=== PATIENT | male | born 1960 | race Caucasian/White ===

== ENCOUNTER 2018-06-13 10:01 | Inpatient (IN) | payer BC ==
[~2018-06-13] VITALS: Ht 185.4 cm; Wt 97.7 kg
[~2018-06-13 10:01] MED LIST: CAR2T PO; CARV25TA PO; GABA-338 PO; LOSA1TAB39 PO; METF500T7 PO; MULT-1085 PO; NOR5T PO; SITA50TA7 PO
[2018-06-13 11:19] LABS: BASOPHILS # (AUTO) 0.1 X10'3 (0-0.2); BASOPHILS % (AUTO) 0.9 % (0-1); EOSINOPHILS # (AUTO) 0.3 X10'3 (0-0.9); EOSINOPHILS % (AUTO) 2.8 % (0-6); HEMATOCRIT 42.5 % (42.0-52.0); HEMOGLOBIN 14.3 g/dl (14.0-17.9); LYMPHOCYTES # (AUTO) 1.9 X10'3 (1.1-4.8); LYMPHOCYTES % (AUTO) 19.3 % (21-51); MEAN CORPUSCULAR HEMOGLOBIN 28.4 PG (27.0-31.0); MEAN CORPUSCULAR HGB CONC 33.6 % (33.0-36.5); MEAN CORPUSCULAR VOLUME 84.5 FL (78-98); MEAN PLATELET VOLUME 8.4 FL (7.4-10.4); MONOCYTES # (AUTO) 0.5 X10'3 (0-0.9); MONOCYTES % (AUTO) 5.3 % (2-12); NEUTROPHILS # (AUTO) 6.8 X10'3 (1.8-7.7); NEUTROPHILS % (AUTO) 71.7 % (42-75); PLATELET COUNT 395 X10'3 (140-440); RED BLOOD COUNT 5.02 X10'6 (4.70-6.10); RED CELL DISTRIBUTION WIDTH 14.2 % (11.5-14.5); WHITE BLOOD COUNT 9.6 X10'3 (4.5-11.0)
[2018-06-13 11:32] LABS: ALANINE AMINOTRANSFERASE 26 U/L (12-78); ALBUMIN 3.5 G/DL (3.4-5.0); ALBUMIN/GLOBULIN RATIO 0.9 (1.1-1.5); ALKALINE PHOSPHATASE 257 IU/L (46-116); ANION GAP 10 (8-16); ASPARTATE AMINO TRANSFERASE 18 U/L (10-37); BILIRUBIN,TOTAL 0.5 MG/DL (0.1-1.0); BLOOD UREA NITROGEN 22 MG/DL (7-18); BUN/CREATININE RATIO 21.2 (5.4-32.0); CHLORIDE 99 MMOL/L (99-107); CREATININE 1.04 MG/DL (0.60-1.10); GLUCOSE 407 MG/DL (70-104); POTASSIUM 4.1 MMOL/L (3.5-5.1); SODIUM 135 MMOL/L (135-145); TOTAL CARBON DIOXIDE 26.3 MMOL/L (24-32); TOTAL PROTEIN 7.3 G/DL (6.4-8.2); eGFR 73 ML/MIN
[2018-06-13] MEDS ORDERED: normal saline 1000ML IV soln IVB ONE (11:35)
[2018-06-13] MEDS ORDERED: piperacillin/tazo 3.375gm/50ml 50 ML IV STA (11:39)
[2018-06-13] MEDS ORDERED: CLIN150C2 PO (11:47)
[2018-06-13] MEDS ORDERED: INSU100V9 SQ (11:49)
[2018-06-13] MEDS ORDERED: vancomycin/NS 1 GM ADD-VANTAGE 250 ML X 1 DOSE IV ONE (11:50)
[2018-06-13] MEDS ORDERED: LIRA0.6P SQ (11:52)
[2018-06-13] MEDS ORDERED: normal saline 1000ml 1,000 ML IV SCH (12:07)
[2018-06-13] MEDS ORDERED: acetaminophen 325mg tablet PO PRN (12:10)
[2018-06-13] MEDS ORDERED: magnesium hydroxide 30ml (MOM) UD suspension PO PRN (12:10)
[2018-06-13] MEDS ORDERED: mag hydrox/Alum hydrox/simeth 30ml oral suspension PO PRN (12:10)
[2018-06-13] MEDS ORDERED: potassium Cl 20 mEq SR tablet PO PRN ×2 (12:10)
[2018-06-13] MEDS ORDERED: ondansetron/PF 4mg/2ml inj IV PRN (12:10)
[2018-06-13] MEDS ORDERED: magnesium Cl slow-release 64mg tablet PO PRN (12:10)
[2018-06-13] MEDS ORDERED: potassium Cl 40MEQ/NS 500ml 500 ML IV PRN ×2 (12:10)
[2018-06-13] MEDS ORDERED: magnesium 1gm/100ml D5W IVPB 100 ML IV PRN (12:10)
[2018-06-13] MEDS ORDERED: magnesium 4gm in 100ml NS 100 ML IV PRN (12:10)
[2018-06-13] MEDS ORDERED: HYDROcodone/acetaminophen 10/325mg tab PO PRN (12:10)
[2018-06-13] MEDS ORDERED: MESSAGE TO PHARMACY PO ONE (12:25)
[2018-06-13] MEDS ORDERED: dextrose ORAL solution 15 GM/59 ML bottle PO PRN ×2 (12:25)
[2018-06-13] MEDS ORDERED: dextrose 50%-water 50ml dispensing syringe IV PRN ×2 (12:25)
[2018-06-13] MEDS ORDERED: glucagon, human recombinant 1mg kit SUBCUT PRN (12:25)
[2018-06-13 12:29] LABS: HEMOGLOBIN A1C 10.6 % (4.5-6.2)
[2018-06-13] MEDS: gabapentin 300mg capsule PO SCH ×2 (13:10→21:11)
[2018-06-13 14:10] VITALS: BP 175/96
[2018-06-13] MEDS: acetaminophen 325mg tablet PO PRN (17:04)
[2018-06-13 18:00] VITALS: BP 171/93
[2018-06-13] MEDS: insulin Lispro (HumaLOG) vial - multi-dose SQ SCH (19:07)
[2018-06-13] MEDS: piperacillin-tazo 2.25gm/50ml 50 ML IV SCH (19:12)
[2018-06-13] MEDS: vancomycin inj 1,250 MG in normal saline 250ml IV soln 250 ML IV SCH (19:14)
[2018-06-13] MEDS: enoxaparin 30mg/0.3ml syringe SQ SCH (19:15)
[2018-06-13] MEDS: docusate sod 100mg capsule PO SCH (19:17)
[2018-06-13] MEDS ORDERED: temazepam 15mg capsule PO PRN (21:00)
[2018-06-13] MEDS: insulin glargine (Lantus) pen - multi-dose SQ SCH (21:15)
[2018-06-13 22:00] VITALS: BP 173/74
[2018-06-14] MEDS: HYDROcodone/acetaminophen 5mg/325mg tablet PO PRN ×3 (01:15→21:42)
[2018-06-14] MEDS: vancomycin inj 1,250 MG in normal saline 250ml IV soln 250 ML IV SCH (03:56)
[2018-06-14] MEDS: piperacillin-tazo 2.25gm/50ml 50 ML IV SCH ×3 (03:56→19:09)
[2018-06-14 06:00] VITALS: BP 164/87
[2018-06-14 06:29] LABS: BASOPHILS # (AUTO) 0.1 X10'3 (0-0.2); BASOPHILS % (AUTO) 0.8 % (0-1); EOSINOPHILS # (AUTO) 0.4 X10'3 (0-0.9); EOSINOPHILS % (AUTO) 4.1 % (0-6); HEMATOCRIT 39.1 % (42.0-52.0); HEMOGLOBIN 13.2 g/dl (14.0-17.9); LYMPHOCYTES # (AUTO) 2.9 X10'3 (1.1-4.8); LYMPHOCYTES % (AUTO) 28.5 % (21-51); MEAN CORPUSCULAR HEMOGLOBIN 28.9 PG (27.0-31.0); MEAN CORPUSCULAR HGB CONC 33.9 % (33.0-36.5); MEAN CORPUSCULAR VOLUME 85.4 FL (78-98); MEAN PLATELET VOLUME 8.8 FL (7.4-10.4); MONOCYTES # (AUTO) 0.7 X10'3 (0-0.9); MONOCYTES % (AUTO) 7.1 % (2-12); NEUTROPHILS # (AUTO) 6.1 X10'3 (1.8-7.7); NEUTROPHILS % (AUTO) 59.5 % (42-75); PLATELET COUNT 353 X10'3 (140-440); RED BLOOD COUNT 4.58 X10'6 (4.70-6.10); RED CELL DISTRIBUTION WIDTH 14.1 % (11.5-14.5); WHITE BLOOD COUNT 10.2 X10'3 (4.5-11.0)
[2018-06-14 06:52] LABS: ALANINE AMINOTRANSFERASE 28 U/L (12-78); ALBUMIN/GLOBULIN RATIO 0.9 (1.1-1.5); ALKALINE PHOSPHATASE 194 IU/L (46-116); ANION GAP 8 (8-16); ASPARTATE AMINO TRANSFERASE 20 U/L (10-37); BILIRUBIN,TOTAL 0.5 MG/DL (0.1-1.0); BLOOD UREA NITROGEN 13 MG/DL (7-18); BUN/CREATININE RATIO 18.1 (5.4-32.0); CALCIUM 8.7 MG/DL (8.5-10.1); CHLORIDE 104 MMOL/L (99-107); CHOL/HDL RATIO 6.2 (0.00-4.99); CHOLESTEROL 168 MG/DL (0-200); CREATININE 0.72 MG/DL (0.60-1.10); GLUCOSE 182 MG/DL (70-104); HDL CHOLESTEROL 27 MG/DL (35-60); LDL CHOLESTEROL 95 MG/DL (50-100); MAGNESIUM 1.6 MG/DL (1.5-2.4); POTASSIUM 3.4 MMOL/L (3.5-5.1); SODIUM 139 MMOL/L (135-145); TOTAL CARBON DIOXIDE 26.8 MMOL/L (24-32); TOTAL PROTEIN 6.3 G/DL (6.4-8.2); TRIGLYCERIDES 280 MG/DL (20-135); eGFR > 90 ML/MIN
[2018-06-14] MEDS: K and/or MAG REPLACEMENT MC SCH (08:00)
[2018-06-14] MEDS: insulin Lispro (HumaLOG) vial - multi-dose SQ SCH ×3 (08:34→19:06)
[2018-06-14] MEDS: enoxaparin 30mg/0.3ml syringe SQ SCH ×2 (08:36→19:10)
[2018-06-14] MEDS: HYDROchlorothiazide 25mg tablet PO SCH (08:38)
[2018-06-14] MEDS: losartan 50mg tablet PO SCH (08:38)
[2018-06-14] MEDS: gabapentin 300mg capsule PO SCH ×3 (08:38→21:38)
[2018-06-14] MEDS: docusate sod 100mg capsule PO SCH ×2 (08:38→19:09)
[2018-06-14 10:00] VITALS: BP 168/98
[2018-06-14] MEDS ORDERED: VANCOMYCIN LEVEL IV ONE (11:30)
[2018-06-14 14:02] VITALS: BP 165/81
[2018-06-14] MEDS ORDERED: gadopentetate dimeglumine 7.5 MMOL/15 ML syringe ONE (15:23)
[2018-06-14 18:00] VITALS: BP 180/102
[2018-06-14] MEDS: lactobacillus rhamnosus 10,000 MMU CELLS/CAPSULE PO SCH (19:09)
[2018-06-14] MEDS: insulin glargine (Lantus) pen - multi-dose SQ SCH (21:37)
[2018-06-14 22:00] VITALS: BP 170/88
[2018-06-15] MEDS: HYDROcodone/acetaminophen 5mg/325mg tablet PO PRN (04:55)
[2018-06-15] MEDS: piperacillin-tazo 2.25gm/50ml 50 ML IV SCH ×3 (04:55→20:14)
[2018-06-15 05:59] LABS: BASOPHILS # (AUTO) 0.1 X10'3 (0-0.2); EOSINOPHILS # (AUTO) 0.5 X10'3 (0-0.9); EOSINOPHILS % (AUTO) 5.6 % (0-6); HEMATOCRIT 39.2 % (42.0-52.0); HEMOGLOBIN 13.4 g/dl (14.0-17.9); LYMPHOCYTES # (AUTO) 2.6 X10'3 (1.1-4.8); LYMPHOCYTES % (AUTO) 26.5 % (21-51); MEAN CORPUSCULAR HEMOGLOBIN 29.3 PG (27.0-31.0); MEAN CORPUSCULAR HGB CONC 34.2 % (33.0-36.5); MEAN CORPUSCULAR VOLUME 85.5 FL (78-98); MEAN PLATELET VOLUME 8.3 FL (7.4-10.4); MONOCYTES # (AUTO) 0.7 X10'3 (0-0.9); MONOCYTES % (AUTO) 7.7 % (2-12); NEUTROPHILS # (AUTO) 5.8 X10'3 (1.8-7.7); NEUTROPHILS % (AUTO) 59.2 % (42-75); PLATELET COUNT 339 X10'3 (140-440); RED BLOOD COUNT 4.58 X10'6 (4.70-6.10); WHITE BLOOD COUNT 9.8 X10'3 (4.5-11.0)
[2018-06-15 06:00] VITALS: BP 170/89
[2018-06-15 06:17] LABS: ALANINE AMINOTRANSFERASE 25 U/L (12-78); ALBUMIN 3.1 G/DL (3.4-5.0); ALBUMIN/GLOBULIN RATIO 0.9 (1.1-1.5); ALKALINE PHOSPHATASE 187 IU/L (46-116); ANION GAP 4 (8-16); ASPARTATE AMINO TRANSFERASE 15 U/L (10-37); BILIRUBIN,TOTAL 0.6 MG/DL (0.1-1.0); BLOOD UREA NITROGEN 16 MG/DL (7-18); BUN/CREATININE RATIO 16.8 (5.4-32.0); CALCIUM 9.3 MG/DL (8.5-10.1); CHLORIDE 102 MMOL/L (99-107); CREATININE 0.95 MG/DL (0.60-1.10); GLUCOSE 203 MG/DL (70-104); MAGNESIUM 1.6 MG/DL (1.5-2.4); POTASSIUM 3.6 MMOL/L (3.5-5.1); SODIUM 136 MMOL/L (135-145); TOTAL CARBON DIOXIDE 30.2 MMOL/L (24-32); TOTAL PROTEIN 6.6 G/DL (6.4-8.2); eGFR 81 ML/MIN
[2018-06-15] MEDS: acetaminophen 325mg tablet PO PRN ×2 (06:50→13:27)
[2018-06-15] MEDS: K and/or MAG REPLACEMENT MC SCH (07:27)
[2018-06-15] MEDS: gabapentin 300mg capsule PO SCH ×3 (07:32→20:14)
[2018-06-15] MEDS: docusate sod 100mg capsule PO SCH ×2 (07:33→20:00)
[2018-06-15] MEDS: losartan 50mg tablet PO SCH (07:33)
[2018-06-15] MEDS: HYDROchlorothiazide 25mg tablet PO SCH (07:33)
[2018-06-15] MEDS: lactobacillus rhamnosus 10,000 MMU CELLS/CAPSULE PO SCH ×2 (07:34→20:13)
[2018-06-15] MEDS: enoxaparin 30mg/0.3ml syringe SQ SCH ×2 (07:35→20:13)
[2018-06-15] MEDS: insulin Lispro (HumaLOG) vial - multi-dose SQ SCH ×4 (08:30→21:39)
[2018-06-15 10:00] VITALS: BP 163/83
[2018-06-15] MEDS: amLODIPine 5mg tablet PO SCH (11:47)
[2018-06-15] MEDS ORDERED: VANCOMYCIN LEVEL IV NR (14:30)
[2018-06-15 18:00] VITALS: BP 148/81
[2018-06-15] MEDS: insulin glargine (Lantus) pen - multi-dose SQ SCH (21:38)
[2018-06-15 22:00] VITALS: BP 147/78
[2018-06-16] MEDS: piperacillin-tazo 2.25gm/50ml 50 ML IV SCH ×2 (04:02→12:00)
[2018-06-16] MEDS: acetaminophen 325mg tablet PO PRN ×2 (04:06→10:53)
[2018-06-16 06:00] VITALS: BP 150/78
[2018-06-16 06:19] LABS: BASOPHILS # (AUTO) 0.1 X10'3 (0-0.2); BASOPHILS % (AUTO) 0.6 % (0-1); EOSINOPHILS # (AUTO) 0.6 X10'3 (0-0.9); EOSINOPHILS % (AUTO) 5.1 % (0-6); HEMOGLOBIN 13.3 g/dl (14.0-17.9); LYMPHOCYTES # (AUTO) 2.3 X10'3 (1.1-4.8); LYMPHOCYTES % (AUTO) 21.5 % (21-51); MEAN CORPUSCULAR HEMOGLOBIN 28.9 PG (27.0-31.0); MEAN CORPUSCULAR VOLUME 84.8 FL (78-98); MEAN PLATELET VOLUME 8.3 FL (7.4-10.4); MONOCYTES # (AUTO) 0.9 X10'3 (0-0.9); MONOCYTES % (AUTO) 8.4 % (2-12); NEUTROPHILS % (AUTO) 64.4 % (42-75); PLATELET COUNT 354 X10'3 (140-440); RED BLOOD COUNT 4.59 X10'6 (4.70-6.10); RED CELL DISTRIBUTION WIDTH 14.7 % (11.5-14.5); WHITE BLOOD COUNT 10.9 X10'3 (4.5-11.0)
[2018-06-16 06:32] LABS: ALANINE AMINOTRANSFERASE 23 U/L (12-78); ALBUMIN 2.9 G/DL (3.4-5.0); ALBUMIN/GLOBULIN RATIO 0.9 (1.1-1.5); ALKALINE PHOSPHATASE 198 IU/L (46-116); ANION GAP 6 (8-16); ASPARTATE AMINO TRANSFERASE 14 U/L (10-37); BILIRUBIN,TOTAL 0.5 MG/DL (0.1-1.0); BLOOD UREA NITROGEN 17 MG/DL (7-18); BUN/CREATININE RATIO 15.9 (5.4-32.0); CHLORIDE 101 MMOL/L (99-107); CREATININE 1.07 MG/DL (0.60-1.10); GLUCOSE 323 MG/DL (70-104); MAGNESIUM 1.7 MG/DL (1.5-2.4); SODIUM 136 MMOL/L (135-145); TOTAL CARBON DIOXIDE 29.3 MMOL/L (24-32); TOTAL PROTEIN 6.3 G/DL (6.4-8.2); eGFR 70 ML/MIN
[2018-06-16] MEDS: docusate sod 100mg capsule PO SCH (08:00)
[2018-06-16] MEDS: K and/or MAG REPLACEMENT MC SCH (08:00)
[2018-06-16] MEDS: enoxaparin 30mg/0.3ml syringe SQ SCH (08:00)
[2018-06-16] MEDS: lactobacillus rhamnosus 10,000 MMU CELLS/CAPSULE PO SCH (08:08)
[2018-06-16] MEDS: amLODIPine 5mg tablet PO SCH (08:08)
[2018-06-16] MEDS: losartan 50mg tablet PO SCH (08:08)
[2018-06-16] MEDS: HYDROchlorothiazide 25mg tablet PO SCH (08:09)
[2018-06-16] MEDS: gabapentin 300mg capsule PO SCH ×2 (08:09→13:00)
[2018-06-16] MEDS: insulin Lispro (HumaLOG) vial - multi-dose SQ SCH (09:05)
[2018-06-16 10:00] VITALS: BP 137/73
[2018-06-16] MEDS ORDERED: AMOX-422 PO (10:49)
[2018-06-16] MEDS ORDERED: AMLO5TAB16 PO (10:49)
== END 2018-06-16 13:40 | disposition home or self-care (01) | DRG 603 ==
LOC: ER 10:02 → ED HOLD 12:07 → ORTHO 4S 14:08
PROVIDERS: ADMIT Internal Medicine; ATTEND Family Medicine
PROC: 0JCQ3ZZ Extirpation of Matter from Right Foot Subcutaneous Tissue and Fascia, Percutaneous Approach (ICD-10-PCS; principal; 2018-06-15)
DX: L03.115 Cellulitis of right lower limb (principal); E11.65 Type 2 diabetes mellitus with hyperglycemia; E87.6 Hypokalemia; I10 Essential (primary) hypertension; F14.90 Cocaine use, unspecified, uncomplicated; K21.9 Gastro-esophageal reflux disease without esophagitis; L89.890 Pressure ulcer of other site, unstageable; S42.001A Fracture of unspecified part of right clavicle, initial encounter for closed fracture; Z72.0 Tobacco use; Z79.4 Long term (current) use of insulin; Z91.013 Allergy to seafood; Z79.899 Other long term (current) drug therapy; Z71.6 Tobacco abuse counseling; V29.9XXA Motorcycle rider (driver) (passenger) injured in unspecified traffic accident, initial encounter; Y93.89 Activity, other specified; Y92.89 Other specified places as the place of occurrence of the external cause; Y99.8 Other external cause status
CPT/HCPCS: 36415; 73000; 73720; 80053; 80061; 80202; 82948; 83036; 83605; 83735; 84145; 85025; 87040; 87070; 93971; 96365; 97110; 97116; 97161; 99285; A6212; A6222; A6266; A6446; A6449; A9579; J1650; J1815; J2543; J3370; J7030

== ENCOUNTER 2018-07-14 08:25 | Day surgery (SDC) | payer BC ==
[~2018-07-14 08:25] MED LIST changes: +AMLO5TAB16 PO; -CAR2T PO; -CARV25TA PO; +INSU100V9 SQ; +LIRA0.6P SQ; -METF500T7 PO; -MULT-1085 PO; -NOR5T PO; -SITA50TA7 PO
[2018-07-14] MEDS ORDERED: LIDOcaine/PRILOcaine 5gm cream TP ONE (09:29)
== END 2018-07-14 10:06 | disposition home or self-care (01) ==
LOC: WOUND CARE 08:25
PROVIDERS: ATTEND Surgery
DX: E11.622 Type 2 diabetes mellitus with other skin ulcer (principal); L97.312 Non-pressure chronic ulcer of right ankle with fat layer exposed; I10 Essential (primary) hypertension; K21.9 Gastro-esophageal reflux disease without esophagitis; E11.65 Type 2 diabetes mellitus with hyperglycemia; F14.90 Cocaine use, unspecified, uncomplicated; Z79.4 Long term (current) use of insulin; Z79.899 Other long term (current) drug therapy; Z71.6 Tobacco abuse counseling
CPT/HCPCS: 11042; 36416; 82948; A6021; A6206; A6209; A6446

== ENCOUNTER 2018-07-26 08:10 | Day surgery (SDC) | payer BC ==
[2018-07-26] MEDS ORDERED: LIDOcaine/PRILOcaine 5gm cream TP ONE (09:44)
== END 2018-07-26 10:40 | disposition home or self-care (01) ==
LOC: WOUND CARE 08:10
PROVIDERS: ATTEND Surgery
DX: E11.622 Type 2 diabetes mellitus with other skin ulcer (principal); L97.312 Non-pressure chronic ulcer of right ankle with fat layer exposed; I10 Essential (primary) hypertension; K21.9 Gastro-esophageal reflux disease without esophagitis; E11.65 Type 2 diabetes mellitus with hyperglycemia; F14.90 Cocaine use, unspecified, uncomplicated; Z79.4 Long term (current) use of insulin; Z79.899 Other long term (current) drug therapy; Z71.6 Tobacco abuse counseling
CPT/HCPCS: 82948; A6209; A6222; A6446; C5271; Q4102; A6250

== ENCOUNTER 2018-08-02 08:30 | Day surgery (SDC) | payer BC ==
[2018-08-02] MEDS ORDERED: LIDOcaine/PRILOcaine 5gm cream TP ONE (09:53)
== END 2018-08-02 10:27 | disposition home or self-care (01) ==
LOC: WOUND CARE 08:30
PROVIDERS: ATTEND Surgery
DX: E11.622 Type 2 diabetes mellitus with other skin ulcer (principal); L97.312 Non-pressure chronic ulcer of right ankle with fat layer exposed; I10 Essential (primary) hypertension; K21.9 Gastro-esophageal reflux disease without esophagitis; E11.65 Type 2 diabetes mellitus with hyperglycemia; F14.90 Cocaine use, unspecified, uncomplicated; Z79.4 Long term (current) use of insulin; Z79.899 Other long term (current) drug therapy; Z71.6 Tobacco abuse counseling
CPT/HCPCS: 36416; 82948; A6209; A6222; A6446; C5271; Q4102; A6250

== ENCOUNTER 2018-08-09 08:26 | Day surgery (SDC) | payer BC ==
[2018-08-09] MEDS ORDERED: LIDOcaine/PRILOcaine 5gm cream TP ONE (09:51)
== END 2018-08-09 10:53 | disposition home or self-care (01) ==
LOC: WOUND CARE 08:26
PROVIDERS: ATTEND Surgery
DX: E11.622 Type 2 diabetes mellitus with other skin ulcer (principal); L97.312 Non-pressure chronic ulcer of right ankle with fat layer exposed; I10 Essential (primary) hypertension; K21.9 Gastro-esophageal reflux disease without esophagitis; E11.65 Type 2 diabetes mellitus with hyperglycemia; F14.90 Cocaine use, unspecified, uncomplicated; Z79.4 Long term (current) use of insulin; Z79.899 Other long term (current) drug therapy; Z71.6 Tobacco abuse counseling
CPT/HCPCS: 15271; 36416; A6209; A6222; Q4131; A6250

== ENCOUNTER 2018-08-16 08:00 | Day surgery (SDC) | payer BC ==
[2018-08-16] MEDS ORDERED: LIDOcaine/PRILOcaine 5gm cream TP ONE (09:53)
== END 2018-08-16 10:18 | disposition home or self-care (01) ==
LOC: WOUND CARE 08:00
PROVIDERS: ATTEND Surgery
DX: E11.622 Type 2 diabetes mellitus with other skin ulcer (principal); L97.312 Non-pressure chronic ulcer of right ankle with fat layer exposed; I10 Essential (primary) hypertension; K21.9 Gastro-esophageal reflux disease without esophagitis; E11.65 Type 2 diabetes mellitus with hyperglycemia; F14.90 Cocaine use, unspecified, uncomplicated; Z79.4 Long term (current) use of insulin; Z79.899 Other long term (current) drug therapy; Z71.6 Tobacco abuse counseling
CPT/HCPCS: 36416; 82948; 97597; A6206; A6209; A6446

== ENCOUNTER 2018-08-23 08:08 | Day surgery (SDC) | payer BC ==
[2018-08-23] MEDS ORDERED: LIDOcaine/PRILOcaine 5gm cream TP ONE (09:40)
== END 2018-08-23 10:42 | disposition home or self-care (01) ==
LOC: WOUND CARE 08:08
PROVIDERS: ATTEND Surgery
DX: E11.622 Type 2 diabetes mellitus with other skin ulcer (principal); L97.312 Non-pressure chronic ulcer of right ankle with fat layer exposed; I10 Essential (primary) hypertension; K21.9 Gastro-esophageal reflux disease without esophagitis; E11.65 Type 2 diabetes mellitus with hyperglycemia; F14.90 Cocaine use, unspecified, uncomplicated; Z79.4 Long term (current) use of insulin; Z79.899 Other long term (current) drug therapy; Z71.6 Tobacco abuse counseling
CPT/HCPCS: 36416; 82948; 97597; A6206; A6209

== ENCOUNTER 2018-08-30 08:05 | Outpatient (CLI) | payer BC | END 2018-08-30 10:10 | disposition home or self-care (01) | LOC: WOUND CARE 08:05 | PROVIDERS: ATTEND Surgery | DX: E11.622 Type 2 diabetes mellitus with other skin ulcer (principal); L97.312 Non-pressure chronic ulcer of right ankle with fat layer exposed; I10 Essential (primary) hypertension; K21.9 Gastro-esophageal reflux disease without esophagitis; E11.65 Type 2 diabetes mellitus with hyperglycemia; F14.90 Cocaine use, unspecified, uncomplicated; Z79.4 Long term (current) use of insulin; Z79.899 Other long term (current) drug therapy; Z71.6 Tobacco abuse counseling | CPT/HCPCS: 99214; A6212 ==

== ENCOUNTER 2019-08-21 07:33 | Emergency (ER) | payer BC ==
[~2019-08-21] VITALS: Ht 180.3 cm; Wt 90.0 kg
[2019-08-21] MEDS ORDERED: FURO-150 PO (10:05)
[2019-08-21] MEDS ORDERED: POTA10TA10 PO (10:05)
[2019-08-21] MEDS ORDERED: CEPH-572 PO (10:05)
[2019-08-21 10:26] VITALS: BP 146/80
== END 2019-08-21 10:29 | disposition home or self-care (01) ==
LOC: ER 07:33
DX: L03.116 Cellulitis of left lower limb (principal); R60.0 Localized edema; E11.9 Type 2 diabetes mellitus without complications; I10 Essential (primary) hypertension; F14.90 Cocaine use, unspecified, uncomplicated; Z98.890 Other specified postprocedural states; Z79.899 Other long term (current) drug therapy; Z79.4 Long term (current) use of insulin; Z91.013 Allergy to seafood
CPT/HCPCS: 82948; 93971; 99284

== ENCOUNTER 2019-11-05 10:04 | Emergency (ER) | payer BC ==
[~2019-11-05] VITALS: Ht 182.9 cm; Wt 100.3 kg
[~2019-11-05 10:04] MED LIST changes: +FURO-150 PO
[2019-11-05] MEDS ORDERED: LOSA1TAB15 PO (10:34)
[2019-11-05] MEDS ORDERED: CARV6.253 PO (10:36)
[2019-11-05] MEDS ORDERED: INSU200I (10:36)
[2019-11-05] MEDS ORDERED: losartan 50mg tablet PO SCH (10:45)
[2019-11-05] MEDS ORDERED: HYDROchlorothiazide 25mg tablet PO ONE (10:45)
[2019-11-05] MEDS ORDERED: acetaminophen 325mg tablet PO ONE ×2 (11:10→11:20)
[2019-11-05] MEDS ORDERED: LOSA1TAB39 PO (11:19)
[2019-11-05] MEDS ORDERED: NICO2GUM48 BC (11:19)
[2019-11-05 12:50] VITALS: BP_DIAS 85
[2019-11-05 13:00] LABS: BASOPHILS # (AUTO) 0.1 X10'3 (0-0.2); EOSINOPHILS # (AUTO) 0.3 X10'3 (0-0.9); EOSINOPHILS % (AUTO) 3.5 % (0-6); HEMATOCRIT 40.2 % (42.0-52.0); HEMOGLOBIN 13.6 g/dl (14.0-17.9); LYMPHOCYTES # (AUTO) 2.6 X10'3 (1.1-4.8); LYMPHOCYTES % (AUTO) 31.4 % (21-51); MEAN CORPUSCULAR HEMOGLOBIN 28.2 PG (27.0-31.0); MEAN CORPUSCULAR HGB CONC 33.9 g/dL (33.0-36.5); MEAN CORPUSCULAR VOLUME 83.1 FL (78-98); MEAN PLATELET VOLUME 8.9 FL (7.4-10.4); MONOCYTES # (AUTO) 0.7 X10'3 (0-0.9); MONOCYTES % (AUTO) 7.9 % (2-12); NEUTROPHILS # (AUTO) 4.7 X10'3 (1.8-7.7); NEUTROPHILS % (AUTO) 56.2 % (42-75); PLATELET COUNT 260 X10'3 (140-440); RED BLOOD COUNT 4.84 X10'6 (4.70-6.10); RED CELL DISTRIBUTION WIDTH 14.1 % (11.5-14.5); WHITE BLOOD COUNT 8.3 X10'3 (4.5-11.0)
[2019-11-05 13:02] VITALS: BP_SYST 166
[2019-11-05 13:15] LABS: ALANINE AMINOTRANSFERASE 39 U/L (12-78); ALBUMIN 3.1 G/DL (3.4-5.0); ALBUMIN/GLOBULIN RATIO 0.9 (1.1-1.5); ALKALINE PHOSPHATASE 87 IU/L (46-116); ANION GAP 8 (8-16); ASPARTATE AMINO TRANSFERASE 19 U/L (10-37); BILIRUBIN,TOTAL 0.4 MG/DL (0.1-1.0); BLOOD UREA NITROGEN 11 MG/DL (7-18); BUN/CREATININE RATIO 12.8 (5.4-32.0); CALCIUM 8.5 MG/DL (8.5-10.1); CHLORIDE 104 MMOL/L (99-107); CREATININE 0.86 MG/DL (0.60-1.10); GLUCOSE 242 MG/DL (70-104); POTASSIUM 4.1 MMOL/L (3.5-5.1); SODIUM 139 MMOL/L (135-145); TOTAL CARBON DIOXIDE 26.7 MMOL/L (24-32); TOTAL PROTEIN 6.4 G/DL (6.4-8.2); eGFR 90 ML/MIN
[2019-11-05 13:19] LABS: TROPONIN I < 0.04 NG/ML (0.0-0.05)
== END 2019-11-05 13:04 | disposition home or self-care (01) ==
LOC: ER 10:04
DX: I10 Essential (primary) hypertension (principal); E11.65 Type 2 diabetes mellitus with hyperglycemia; F17.200 Nicotine dependence, unspecified, uncomplicated; F14.90 Cocaine use, unspecified, uncomplicated; Z98.890 Other specified postprocedural states; Z79.4 Long term (current) use of insulin; Z91.013 Allergy to seafood; Z79.899 Other long term (current) drug therapy
CPT/HCPCS: 36415; 70450; 80053; 82948; 84484; 85025; 93005; 99284

== ENCOUNTER → 2025-03-15 | Emergency (ER) | payer OTHER, MEDICARE, BC ==
[~2025-03-15] VITALS: Ht 182.9 cm; Wt 73.5 kg
[~2025-03-15] MED LIST changes: -AMLO5TAB16 PO; +CARV6.253 PO; -FURO-150 PO; +INSU200I; -LIRA0.6P SQ; +LOSA-424 PO; +NICO-807 BC; +iohexol 300mg/ml 100ml inj. ONE
[2025-03-15 15:01] VITALS: TEMP 98.8
[2025-03-15 15:02] LABS: BASOPHILS # (AUTO) 0.1 X10'3 (0-0.2); BASOPHILS % (AUTO) 0.6 % (0-1); EOSINOPHILS # (AUTO) 0.1 X10'3 (0-0.9); EOSINOPHILS % (AUTO) 0.9 % (0-6); HEMATOCRIT 50.4 % (42.0-52.0); HEMOGLOBIN 16.8 g/dl (14.0-17.9); LYMPHOCYTES # (AUTO) 1.4 X10'3 (1.1-4.8); LYMPHOCYTES % (AUTO) 11.1 % (21-51); MEAN CORPUSCULAR HEMOGLOBIN 28.4 PG (27.0-31.0); MEAN CORPUSCULAR HGB CONC 33.4 g/dL (33.0-36.5); MEAN CORPUSCULAR VOLUME 85.3 FL (78-98); MEAN PLATELET VOLUME 8.9 FL (7.4-10.4); MONOCYTES # (AUTO) 0.7 X10'3 (0-0.9); MONOCYTES % (AUTO) 5.4 % (2-12); NEUTROPHILS # (AUTO) 10.6 X10'3 (1.8-7.7); PLATELET COUNT 324 X10'3 (140-440); RED BLOOD COUNT 5.91 X10'6 (4.70-6.10); RED CELL DISTRIBUTION WIDTH 14.7 % (11.5-14.5); WHITE BLOOD COUNT 12.9 X10'3 (4.5-11.0)
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
[2025-03-15 15:17] LABS: ALANINE AMINOTRANSFERASE 35 U/L (12-78); ALBUMIN 4.2 G/DL (3.4-5.0); ALKALINE PHOSPHATASE 107 IU/L (46-116); ANION GAP 8 (8-16); ASPARTATE AMINO TRANSFERASE 24 U/L (10-37); BILIRUBIN,TOTAL 0.7 MG/DL (0.1-1.0); BLOOD UREA NITROGEN 21 MG/DL (7-18); BUN/CREATININE RATIO 19.3 (10.0-20.0); CALCIUM 9.3 MG/DL (8.5-10.1); CHLORIDE 105 MMOL/L (99-107); CREATININE 1.09 MG/DL (0.60-1.10); GLUCOSE 198 MG/DL (70-104); SODIUM 142 MMOL/L (135-145); TOTAL CARBON DIOXIDE 28.8 MMOL/L (24-32); eCRCL 68 ML/MIN; eGFR 67 ML/MIN
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
--- NOTE | 2025-03-15 15:30 | ELECTROCARDIOGRAPH REPORT ---
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
[2025-03-15 16:48] LABS: ALBUMIN/GLOBULIN RATIO -2.5 (1.1-1.5); TOTAL PROTEIN 2.5 G/DL (6.4-8.2)
[2025-03-15 16:51] VITALS: BP 126/66; PULSE 90; RESP 16; O2SAT 99
== END | disposition home or self-care (01) ==
LOC: ER 14:21
DX: S20.219A Contusion of unspecified front wall of thorax, initial encounter (principal); M54.2 Cervicalgia; E11.9 Type 2 diabetes mellitus without complications; I10 Essential (primary) hypertension; F14.90 Cocaine use, unspecified, uncomplicated; Z79.899 Other long term (current) drug therapy; Z91.013 Allergy to seafood; Z79.4 Long term (current) use of insulin; Z98.890 Other specified postprocedural states; V59.40XA Driver of pick-up truck or van injured in collision with unspecified motor vehicles in traffic accident, initial encounter; Y93.89 Activity, other specified; Y92.89 Other specified places as the place of occurrence of the external cause; Y99.8 Other external cause status
CPT/HCPCS: 36415; 70450; 71045; 71260; 72125; 73521; 74177; 80053; 84484; 85025; 86885; 86900; 86901; 93005; 99285; J7030; Q9967